=== PATIENT | female | born 1935 | race Caucasian/White ===

== ENCOUNTER 2016-07-04 14:24 | Outpatient (CLI) | payer MEDICARE, MEDICAID ==
[~2016-07-04] VITALS: Ht 144.8 cm; Wt 76.7 kg
[2016-07-04 14:29] VITALS: BP_SYST 139; BP_SYST 149; BP_DIAS 69; BP_DIAS 70
== END 2016-07-04 23:59 | disposition home or self-care (01) ==
LOC: CSC 14:24
PROVIDERS: ATTEND Internal Medicine
DX: R29.6 Repeated falls (principal); R60.0 Localized edema; F41.1 Generalized anxiety disorder; G89.29 Other chronic pain; M80.88XS Other osteoporosis with current pathological fracture, vertebra(e), sequela; Z96.651 Presence of right artificial knee joint; K21.9 Gastro-esophageal reflux disease without esophagitis; E78.5 Hyperlipidemia, unspecified; Z83.3 Family history of diabetes mellitus; Z83.49 Family history of other endocrine, nutritional and metabolic diseases; E88.09 Other disorders of plasma-protein metabolism, not elsewhere classified; S81.801D Unspecified open wound, right lower leg, subsequent encounter; X58.XXXD Exposure to other specified factors, subsequent encounter; K59.09 Other constipation; I25.10 Atherosclerotic heart disease of native coronary artery without angina pectoris; I10 Essential (primary) hypertension; F32.9 Major depressive disorder, single episode, unspecified; Z79.899 Other long term (current) drug therapy
CPT/HCPCS: 97001-TC; G0463

== ENCOUNTER 2018-09-27 15:40 | Inpatient (IN) | payer MEDICARE, MEDICAID ==
[~2018-09-27] VITALS: Ht 144.8 cm; Wt 73.0 kg
--- NOTE | 2018-09-27 15:57 | NUR ---
PT BIBCG FOR GEN WEAKNESS; PT AAOX4, PT ON MONITOR, AMBULATORY TO BED 7, NAD NOTED, PENDING MD [place]
[2018-09-27] MEDS ORDERED: HYDROCODONE/APAP 5/325MG 1 EACH TABLET PO ONE (16:30)
[2018-09-27] MEDS ORDERED: GABAPENTIN 100 MG CAPSULE PO ONE (16:30)
[2018-09-27 16:42] LABS: BASOPHILS # (AUTO) 0.1 /CMM (0.0-0.2); BASOPHILS % (AUTO) 2.2 % (0.0-2.0); EOSINOPHILS % (AUTO) 6.3 % (0.0-6.0); HEMATOCRIT 32 % (33-45); HEMOGLOBIN 10.9 g/dL (11.5-14.8); LYMPHOCYTES % (AUTO) 26.1 % (20.0-44.0); MEAN CORPUSCULAR HGB CONC 34 g/dl (31.0-36.0); MEAN CORPUSCULAR VOLUME 90 fL (82-100); MONOCYTES # (AUTO) 0.6 /CMM (0.1-1.30); MONOCYTES % (AUTO) 16.5 % (2.0-12.0); NEUTROPHILS # (AUTO) 1.8 /CMM (1.8-8.9); NEUTROPHILS % (AUTO) 48.9 % (43.0-81.0); PLATELET COUNT (AUTO) 234 /CMM (150-450); WHITE BLOOD COUNT (AUTO) 3.7 K/uL (4.3-11.0)
[2018-09-27 16:53] LABS: CALCIUM, SERUM 9.2 mg/dL (8.5-10.1); CARBON DIOXIDE 29 mmol/L (21-32); CHLORIDE 88 mmol/L (98-107); CREATININE 0.5 mg/dL (0.6-1.3); GLUCOSE 109 mg/dL (74-106); POTASSIUM 3.5 mmol/L (3.5-5.1); SODIUM SERUM 123 mmol/L (136-145); UREA NITROGEN, BLOOD 16 mg/dL (7-18)
[2018-09-27] MEDS ORDERED: GABAPENTIN 300 MG CAPSULE ONE (16:54)
[2018-09-27] MEDS ORDERED: HYDROCODONE/APAP 5/325MG 1 EACH TABLET ONE (16:54)
[2018-09-27] MEDS ORDERED: IV NS 0.9% 500 ML BAG IV ONE (17:30)
--- NOTE | 2018-09-27 17:56 | NUR ---
CALLED [facility]. SCRUBBING MACHINE OPERATOR WAS PAGED
[2018-09-27 17:57] LABS: EOSINOPHILS % (MANUAL) 8 % (0-4); LYMPHOCYTES % (MANUAL) 23 % (16-48); MONOCYTES % (MANUAL) 15 % (0-11.0); NEUTROPHILS % (MANUAL) 54 (42-76)
[2018-09-27] MEDS ORDERED: LINA145C PO (17:57)
[2018-09-27] MEDS ORDERED: HYDR12.5 PO (17:57)
[2018-09-27] MEDS ORDERED: CARV12.52 PO (17:57)
[2018-09-27] MEDS ORDERED: CLON0.1T PO (17:57)
[2018-09-27] MEDS ORDERED: FURO40TA5 PO (17:57)
[2018-09-27] MEDS ORDERED: CHOL100044 PO (17:57)
[2018-09-27] MEDS ORDERED: AMIT100T2 PO (17:57)
[2018-09-27] MEDS ORDERED: CARB200T8 PO (17:57)
[2018-09-27] MEDS ORDERED: AMLO10TA7 PO (17:57)
[2018-09-27] MEDS ORDERED: PREG75CA PO (17:57)
[2018-09-27] MEDS ORDERED: ATOR10TA PO (17:57)
[2018-09-27] MEDS ORDERED: DEXL60CA3 PO (17:57)
[2018-09-27] MEDS ORDERED: PENT400T12 PO (17:57)
[2018-09-27] MEDS ORDERED: ROPI2TAB5 PO (17:57)
--- NOTE | 2018-09-27 18:03 | NUR ---
CALLED [facility] FOR MS BED
[2018-09-27] MEDS ORDERED: INSULIN REGULAR, HUMAN 100 UNIT/ML 3 ML VIAL SQ PRN (19:00)
[2018-09-27] MEDS ORDERED: ONDANSETRON HCL/PF 4 MG/2 ML VIAL IVP PRN (19:00)
[2018-09-27] MEDS ORDERED: Z GUARD REMEDY 2 OZ OINT TP PRN (19:00)
[2018-09-27] MEDS ORDERED: MAG HYDROX/AL HYDROX/SIMETH 30 ML UDC PO PRN (19:00)
[2018-09-27] MEDS ORDERED: DEXTROSE 50%-WATER 50 ML DISP.SYRIN IV PRN (19:00)
[2018-09-27] MEDS ORDERED: ZOLPIDEM TARTRATE 5 MG TABLET PO PRN (19:00)
[2018-09-27] MEDS ORDERED: ACETAMINOPHEN 325 MG TABLET PO PRN (19:00)
[2018-09-27] MEDS ORDERED: HYDROCODONE/APAP 5/325MG 1 EACH TABLET PO PRN (19:00)
[2018-09-27] MEDS ORDERED: MAGNESIUM HYDROXIDE 30 ML UDC PO PRN (19:00)
--- NOTE | 2018-09-27 19:52 | NUR ---
MS BED 205-2 GIVEN
--- NOTE | 2018-09-27 20:00 | NUR ---
REPORT GIVEN TO SHEFALI LYLES FOR [place]; PT WILL BE TRANSPORTED TO [facility]
[2018-09-27] MEDS: ENOXAPARIN SODIUM 40 MG/0.4 ML DISP.SYRIN SQ SCH (21:00)
[2018-09-27] MEDS ORDERED: CARBAMAZEPINE 200 MG TABLET ONE (21:21)
[2018-09-27] MEDS: CARBAMAZEPINE 200 MG TABLET PO SCH (21:26)
[2018-09-27] MEDS: IV NS 0.9% 1,000 ML IV PRN (21:26)
[2018-09-27] MEDS: BLOOD SUGAR DIAGNOSTIC 1 EACH STRIP IN SCH (21:26)
[2018-09-27] MEDS ORDERED: AMITRIPTYLINE HCL 10 MG TABLET ONE ×2 (21:48→21:50)
[2018-09-27] MEDS ORDERED: AMITRIPTYLINE HCL 50 MG TABLET PO SCH (22:00)
[2018-09-27] MEDS ORDERED: Medication Not On Formulary EA (Amitriptyline Hcl 100 MG) PO SCH (22:00)
[2018-09-27 22:03] VITALS: BP 136/69
[2018-09-28] VITALS (7 sets, daily range): BP systolic 110–146; BP diastolic 51–65
--- NOTE | 2018-09-28 01:20 | NUR ---
MS RN NOTES PT TRANSFERRED TO TELE PER MD ORDER. AWAKE & RESPONSIVE. NOT IN ANY DISTRESS. NO SOB NOTED. DENIES ANY PAIN OR DISCOMFORT AT THIS TIME. WITH IVF INFUSING WELL. MONITORED ACCORDINGLY. REPORT GIVEN TO GOPAL LYLES FOR CONTINUITY OF CARE.
--- NOTE | 2018-09-28 01:23 | NUR ---
TRANSFER NOTES: RECEIVED REPORT FROM SHEFALI LYLES. PT BROUGHT TO THE UNIT VIA BED, PT A/O X2, FARSI SPEAKING UNDERSTAND LITTLE THAI, MET WITH PT'S CAREGIVER AT BED SIDE (PEGGY). PT DENIES ANY PAIN OR DISCOMFORT AT THIS TIME. IV ACCESS ON RIGHT HAND G 22 PATENT AND FLUSHING WELL, INFUSING WITH NS AT 75ML/HR. SKIN ASSESSMENT PERFORMED. TELE MONITORING PLACED. BLE OFFLOADED ON PILLOWS, NOTED BLE EDEMA +3. PT'S CAREGIVER WILL BE LEAVING AND WILL COME BACK AT 0800AM. PT'S CAREGIVER BROUGHT ALL PT'S MEDS BACK HOME. ONLY WALKER AND SHOES OF PT LEFT IN THE ROOM. VS TAKEN AND RECORDED. SAFETY PRECAUTIONS FOR FALL INITIATED, CALL LIGHT IN REACH, WILL CONTINUE MONITORING PT.
[2018-09-28] MEDS: BLOOD SUGAR DIAGNOSTIC 1 EACH STRIP IN SCH ×4 (05:55→21:39)
--- NOTE | 2018-09-28 05:56 | NUR ---
RN NOTES: BLOOD SUGAR 73, PT AWAKE, AROUSABLE, ORANGE JUICE PROVIDED TO PT, CONSUMED 100%
--- NOTE | 2018-09-28 06:44 | NUR ---
RN CLOSING NOTES: PT IN BED, REMAINS A/O X2-3 ON RA RESPIRATION EVEN AND UNLABORED, IV ACCESS REMAINS PATENT AND FLUSHING WELL, INFUSING WITH NS AT 75ML/HR. REMAINS ON SINUS EKATERINA WITH 1ST DEGREE AV BLOCK HR 60. BLE OFFLOADED. VS REMAINS STABLE, NEEDS ATTENDED, FOR PT TODAY . SAFETY PRECAUTIONS FOR FALL REMAINS ENGAGED, CALL LIGHT IN REACH, WILL ENDORSE TO DAY RN FOR CONTINUITY OF CARE.
--- NOTE | 2018-09-28 08:00 | NUR ---
MOBILE THERAPIST OPENING NOTES Received Patient comfortable and asleep in bed. VS stable with no acute distress. Breathing even and unlabored on room air with no respiratory distress. No signs and symptoms of pain. Tele monitor in place and operational SR with 1st Degree AV Block, HR-63. 22g PIV on RIGHT HAND clean, dry, intact and flushing well with IVF NS running at 75ml/hr. Safety precautions in place. Bed locked and set to lowest position with side rails x 2 up. All needs rendered at this time. Will continue to monitor.
[2018-09-28] MEDS: CARBAMAZEPINE 200 MG TABLET PO SCH ×2 (08:43→20:49)
[2018-09-28] MEDS: ropiniROLE 0.5 MG TABLET PO SCH ×3 (08:43→16:47)
[2018-09-28] MEDS: PENTOXIFYLLINE 400 MG TABLET.SA PO SCH (08:43)
[2018-09-28] MEDS: FUROSEMIDE 40 MG TABLET PO SCH (08:43)
[2018-09-28] MEDS: CARVEDILOL 12.5 MG TABLET PO SCH ×2 (08:44→16:47)
[2018-09-28] MEDS: AMLODIPINE BESYLATE 10 MG TABLET PO SCH (08:44)
[2018-09-28 08:54] LABS: BASOPHILS # (AUTO) 0.1 /CMM (0.0-0.2); BASOPHILS % (AUTO) 2.7 % (0.0-2.0); EOSINOPHILS % (AUTO) 10.2 % (0.0-6.0); HEMATOCRIT 32 % (33-45); HEMOGLOBIN 10.9 g/dL (11.5-14.8); LYMPHOCYTES # (AUTO) 0.9 /CMM (0.8-4.8); LYMPHOCYTES % (AUTO) 34.2 % (20.0-44.0); MEAN CORPUSCULAR HGB CONC 34 g/dl (31.0-36.0); MEAN CORPUSCULAR VOLUME 92 fL (82-100); MONOCYTES # (AUTO) 0.2 /CMM (0.1-1.30); MONOCYTES % (AUTO) 8.6 % (2.0-12.0); NEUTROPHILS # (AUTO) 1.2 /CMM (1.8-8.9); NEUTROPHILS % (AUTO) 44.3 % (43.0-81.0); PLATELET COUNT (AUTO) 228 /CMM (150-450); RED BLOOD CELL COUNT(AUTO) 3.51 MIL/uL (4.0-5.2); WHITE BLOOD COUNT (AUTO) 2.7 K/uL (4.3-11.0)
[2018-09-28 09:09] LABS: IRON, SERUM 70 ug/dl (50-175); TOTAL IRON BINDING CAPACITY 234 ug/dl (250-450)
[2018-09-28] MEDS: PREGABALIN 25 MG CAPSULE PO SCH ×2 (09:13→20:49)
[2018-09-28 09:19] LABS: ALANINE AMINOTRANSFERASE 19 U/L (12-78); ALBUMIN 2.9 g/dL (3.4-5.0); ALKALINE PHOSPHATASE 111 U/L (46-116); ASPARTATE AMINOTRANSFERASE 21 U/L (15-37); BILIRUBIN,DIRECT 0.1 mg/dL (0.0-0.2); BILIRUBIN,TOTAL 0.2 mg/dL (0.2-1.0); CALCIUM, SERUM 8.5 mg/dL (8.5-10.1); CARBON DIOXIDE 29 mmol/L (21-32); CHLORIDE 95 mmol/L (98-107); CREATININE 0.6 mg/dL (0.6-1.3); GLUCOSE 130 mg/dL (74-106); MAGNESIUM 1.9 mg/dL (1.8-2.4); PHOSPHORUS 3.5 mg/dL (2.5-4.9); POTASSIUM 2.9 mmol/L (3.5-5.1); SODIUM SERUM 130 mmol/L (136-145); TOTAL PROTEIN, SERUM 6.7 g/dL (6.4-8.2); UREA NITROGEN, BLOOD 12 mg/dL (7-18)
[2018-09-28 09:39] LABS: CHOLESTEROL 167 mg/dL (<200); HDL CHOLESTEROL 86 mg/dL (40-60); LDL 68 mg/dL (0-99); THYROID STIMULATING HORMONE 1.803 uIU/mL (0.358-3.74); TRIGLYCERIDES 66 mg/dL (30-150)
[2018-09-28] MEDS ORDERED: PANTOPRAZOLE 40 MG/PACK PACK GT SCH (09:51)
[2018-09-28] MEDS ORDERED: PANTOPRAZOLE 40 MG/PACK PACK PO SCH (09:54)
[2018-09-28] MEDS: POTASSIUM CHLORIDE 20 MEQ TAB.PRT.SR PO SCH ×2 (10:40→11:33)
[2018-09-28] MEDS ORDERED: POLYETHYLENE GLYCOL 3350 17 GM POWD.PACK PO PRN (11:30)
[2018-09-28] MEDS ORDERED: BISACODYL (5 MG) 5 MG TABLET.DR PO PRN (11:30)
[2018-09-28] MEDS ORDERED: BISACODYL SUPP (10 MG) 10 MG/SUPP.RECT SUPP.RECT RC PRN (11:30)
[2018-09-28] MEDS: DOCUSATE SODIUM 250 MG CAPSULE PO SCH ×2 (11:36→16:47)
[2018-09-28] MEDS: IV NS 0.9% 1,000 ML IV PRN (12:41)
[2018-09-28] MEDS ORDERED: ATORVASTATIN 10 MG TABLET PO SCH (18:00)
[2018-09-28] MEDS: ENOXAPARIN SODIUM 40 MG/0.4 ML DISP.SYRIN SQ SCH (18:16)
--- NOTE | 2018-09-28 19:10 | NUR ---
MS TRUPTI NOTE RECEIVED PT IN STABLE CONDITION A&O X4, ABLE TO MAKE NEEDS KNOWN. CURRENTLY IN BED WATCHING TV. NO SIGNS OF SOB OR DISTRESS, NO C/O PAIN. IV IN RAC IN PLACE. ALL CURRENT NEEDS MET. BED LOW, LOCKED, UPPER RAILS UP, AND CALL LIGHT WITHIN REACH. WILL CONT. TO MONITOR. Addendum: 09/28/18 at 2020 by FACUNDO GONCALVES RN CHARTED ON WRONG PATIENT.
--- NOTE | 2018-09-28 19:29 | NUR ---
MS RN CLOSING NOTES Patient comfortable and resting in bed. VS stable with no acute distress. Breathing even and unlabored on room air with no respiratory distress. No signs and symptoms of pain. 22g PIV on RIGHT HAND clean, dry, intact and flushing well with IVF NS running at 75ml/hr. Safety precautions in place. Bed locked and set to lowest position with side rails x 2 up. Caregiver at bedside. All needs rendered at this time. Will endorse plan of care to oncoming shift.
--- NOTE | 2018-09-28 19:51 | NUR ---
RN INITIAL NOTES: RECEIVED REPORT FROM BRITNEY LYLES. PT IN BED, AWAKE, A/O X3 LITTLE KHMER, FARSI SPEAKING, MET WITH PT'S CAREGIVER AT BED SIDE. PT'S IV ACCESS PATENT AND FLUSHING WELL, INFUSING WITH NS AT 75ML/HR. BLE OFFLOADED. PT DENIES ANY PAIN OR DISCOMFORT AT THIS TIME. SAFETY PRECAUTIONS FOR FALL INITIATED, CALL LIGHT IN REACH, WILL CONTINUE MONITORING PT.
--- NOTE | 2018-09-28 21:40 | NUR ---
accu check 121: pt blood sugar check and result is 121, no insulin coverage given per sliding scale.
--- NOTE | 2018-09-28 21:40 | NUR ---
rn notes: elavil medication out out stock in both [facility] of [facility], contacted rn yojana guerin stated medication not available in night locker, contacted gwen spoked to chau hernandez to take a look if they have available elavil in their [facility], awaiting for call back.
[2018-09-28] MEDS ORDERED: AMITRIPTYLINE HCL 25 MG TABLET ONE ×3 (21:46→21:54)
[2018-09-28] MEDS ORDERED: AMITRIPTYLINE HCL 25 MG TABLET PO SCH (22:00)
[2018-09-29] MEDS: IV NS 0.9% 1,000 ML IV PRN (02:12)
--- NOTE | 2018-09-29 02:24 | NUR ---
RN NOTES: COLLECTED URINE SPECIMEN, CONTACTED LAB FOR RADIO ELECTRICIAN, SPOKED TO REYNALDO
--- NOTE | 2018-09-29 02:27 | NUR ---
PRN MIRALAX: REQUESTED BY PT FOR NO BM X7DAYS, PRN MIRALAX DISSOLVES IN 8OZ OF WATER
--- NOTE | 2018-09-29 04:48 | NUR ---
rn notes: pt requesting for ropinirole she said its for her restless leg, informed pt medication was scheduled for three times a day starting 0900am, offered norco for discomfort and pt refused, vane gonzalez witnessed
[2018-09-29 04:58] LABS: APPEARANCE,URINE CLEAR (CLEAR); BILIRUBIN,URINE NEGATIVE (NEGATIVE); BLOOD, URINE NEGATIVE Ery/uL (NEGATIVE); COLOR,URINE YELLOW (YELLOW); KETONES,URINE NEGATIVE (NEGATIVE); LEUKOCYTE ESTERASE ,URINE NEGATIVE (NEGATIVE); NITRITE, URINE NEGATIVE (NEGATIVE); PROTEIN,URINE NEGATIVE (NEGATIVE); UGLUCOSE NEGATIVE (NEGATIVE); UROBILINOGEN,URINE 0.2 EU/dL (0.2)
[2018-09-29 05:11] LABS: URINE SODIUM, RANDOM 56 mmol/l (40-220)
[2018-09-29 05:20] LABS: OSMOLALITY,URINE 373 mOS/kg (340-1090)
[2018-09-29] MEDS: BLOOD SUGAR DIAGNOSTIC 1 EACH STRIP IN SCH (06:24)
--- NOTE | 2018-09-29 06:25 | NUR ---
ACCU CHECK 84: BLOOD SUGAR 84, NO INSULIN COVERAGE GIVEN PER SLIDING SCALE
--- NOTE | 2018-09-29 06:25 | NUR ---
RN NOTES: OFFERED NORCO FOR PT BUT SHE REFUSED SHE WOULD LIKE TO TAKE HER REQUIP NOW, REQUIP SCHEDULED TID
--- NOTE | 2018-09-29 06:42 | NUR ---
RN CLOSING NOTES: PT IN BED, REMAINS A/O X3, ON RA RESPIRATION EVEN AND UNLABORED. IV ACCESS REMAINS PATENT AND FLUSHING WELL, INFUSING WITH NS AT 75ML/HR. BLE REMAINS OFFLOADED ON PILLOWS. VS REMAINS STABLE, NEEDS ATTENDED. SAFETY PRECAUTIONS FOR FALL INITIATED, CALL LIGHT IN REACH, WILL ENDORSE TO DAY RN FOR CONTINUITY OF CARE.
[2018-09-29 06:55] LABS: URIC ACID 3.1 mg/dL (2.6-7.2)
[2018-09-29 07:06] LABS: CARBON DIOXIDE 28 mmol/L (21-32); CHLORIDE 98 mmol/L (98-107); CREATININE 0.7 mg/dL (0.6-1.3); GLUCOSE 89 mg/dL (74-106); PHOSPHORUS 3.4 mg/dL (2.5-4.9); POTASSIUM 4.2 mmol/L (3.5-5.1); SODIUM SERUM 132 mmol/L (136-145); UREA NITROGEN, BLOOD 23 mg/dL (7-18)
[2018-09-29 08:00] VITALS: BP 147/64
[2018-09-29] MEDS: ropiniROLE 0.5 MG TABLET PO SCH (08:31)
[2018-09-29] MEDS: CARBAMAZEPINE 200 MG TABLET PO SCH (08:32)
[2018-09-29] MEDS: DOCUSATE SODIUM 250 MG CAPSULE PO SCH (08:32)
[2018-09-29] MEDS: PREGABALIN 25 MG CAPSULE PO SCH (08:32)
[2018-09-29] MEDS: PENTOXIFYLLINE 400 MG TABLET.SA PO SCH (08:32)
[2018-09-29] MEDS: FUROSEMIDE 40 MG TABLET PO SCH (08:32)
[2018-09-29] MEDS: CARVEDILOL 12.5 MG TABLET PO SCH (08:33)
[2018-09-29 08:34] VITALS: BP 147/64
[2018-09-29] MEDS: AMLODIPINE BESYLATE 10 MG TABLET PO SCH (08:34)
--- NOTE | 2018-09-29 11:05 | NUR ---
PATIENT CLEARED FOR D/C TO HOME WITH CAREGIVER BY MD. PATIENT ALERT AND ORIENTED X3, VS ARE STABLE ON ROOM AIR, BREATHING UNLABORED AND EVEN WITH NO DISTRESS NOTED. DISCHARGE INSTRUCTIONS AND EDUCATION PROVIDED TO PATIENT AND PT'S CAREGIVER: BOTH VERBALIZED UNDERSTANDING. ALL D/C PAPERS SIGHED INCLUDING VALUABLE FORM( ALL BELONGINGS WITH THE PATIENT). PATIENT WAS IN [place] AND REFUSED TO TAKE D/C PICTURES (HAS NO WOUNDS). IV ASSESS REMOVED , ID WRIST BANDS REMOVED. PATIENT SAFELY TRANSFERRED TO THE [facility] VIA WHEELCHAIR, ACCOMPANIED BY CNC MILLING MACHINIST AND CAREGIVER PEGGY.
== END 2018-09-29 11:30 | disposition home or self-care (01) | DRG 54 ==
LOC: ER 15:41 → MEDSG2 20:06 → MED 09-28 01:30 → TELE 09-28 01:34 → MED 09-28 10:58
PROVIDERS: ADMIT Internal Medicine; ATTEND Student in an Organized Health Care Education/Training Program
DX: G43.909 Migraine, unspecified, not intractable, without status migrainosus (principal); E11.9 Type 2 diabetes mellitus without complications; D63.8 Anemia in other chronic diseases classified elsewhere; E86.1 Hypovolemia; E87.1 Hypo-osmolality and hyponatremia; E78.5 Hyperlipidemia, unspecified; E87.6 Hypokalemia; F41.9 Anxiety disorder, unspecified; G25.81 Restless legs syndrome; G89.4 Chronic pain syndrome; I10 Essential (primary) hypertension; I25.10 Atherosclerotic heart disease of native coronary artery without angina pectoris; K21.9 Gastro-esophageal reflux disease without esophagitis; Z96.659 Presence of unspecified artificial knee joint; T50.2X5A Adverse effect of carbonic-anhydrase inhibitors, benzothiadiazides and other diuretics, initial encounter; Y92.009 Unspecified place in unspecified non-institutional (private) residence as the place of occurrence of the external cause; R29.6 Repeated falls; E86.9 Volume depletion, unspecified
CPT/HCPCS: 36415; 70450-TC; 80048-TC; 80061-TC; 80076-TC; 81000-TC; 82962-TC; 83540-TC; 83735-TC; 83935-TC; 84100-TC; 84300-TC; 84443-TC; 84550-TC; 85025-TC; 85652-TC; 87081-TC; 97116-TC; 97530-TC; G0378; J1650; J1815; J7030; J7040